=== PATIENT | female | born 1985 | race American Indian/Alaskan Native ===

== ENCOUNTER 2020-12-12 23:57 | Emergency (ER) | payer SELFPAY ==
[2020-12-13 00:41] VITALS: BP 128/86
[2020-12-13] MEDS ORDERED: ASPIRIN 81 MG TAB CHEW PO ONE (00:52)
--- NOTE | 2020-12-13 00:56 | Emergency Department Report ---
ED General Adult HPI - General Chief complaint: Chest Pain Stated complaint: CHEST PAIN Time Seen by Provider: 12/13/20 00:47 Source: patient Mode of arrival: Ambulatory Limitations: No Limitations - History of Present Illness Initial comments: 35-year-old female patient with history of asthma presents to the emergency department with complaints of chest pain starting yesterday. Patient describes the pain in her chest as dull, constant, localized to the midsternal area, exacerbated by deep inhalation and coughing, nonradiating. No history of simila r symptoms. Patient states chest pain is inconsistent with prior asthma exacerbations. Patient states her chest pain was preceded by multiple episodes of nonbloody emesis approximately 24 hours earlier. Patient states she has also been coughing for approximately 4 days. Patient does not use tobacco. No history of hypertension, diabetes, hyperlipidemia. No venous thromboembolism risk factors identified on history. Denies fever, chills, shortness of breath, wheezing, hemoptysis, nausea, vomiting, palpitations, syncope, lower extremity pain/swelling. Denies all other complaints at this time. - Related Data Allergies Allergy/AdvReac Type Severity Reaction Status Date / Time No Known Allergies Allergy Verified 12/13/20 00:33 ED Review of Systems ROS: Stated complaint: CHEST PAIN Other details as noted in HPI Other: GENERAL: Negative for fever, chills, weight change, anorexia, fatigue. ENT: Negative for ear pain, difficulty hearing, sore throat, nasal congestion, epistaxis. CARDIOVASCULAR: Positive for chest pain. PULMONARY: Positive for cough. GASTROINTESTINAL: Negative for abdominal pain. MUSCULOSKELETAL: Negative for joint pain, joint swelling, myalgias, back pain, neck pain. NEUROLOGICAL: Negative for headache, seizure, syncope, paresthesias, weakness. INTEGUMENTARY: Negative for erythema, rash, diaphoresis, laceration, ecchymosis. HEMATOLOGICAL: Negative for hemoptysis, hematemesis, hematochezia, hematuria. PSYCHIATRIC: Negative for hallucinations, suicidal ideation, homicidal ideation, anxiety, depression. ED Past Medical Hx - Past Medical History Previous Medical History?: No Hx Asthma: Yes Additional medical history: Bronchitis - Surgical History Past Surgical History?: No - Social History Smoking Status: Never Smoker Substance Use Type: None ED Physical Exam - General Limitations: No Limitations - Other Other exam information: General: Awake and alert. No acute distress. Head: Atraumatic, normocephalic. Eyes: EOMI. Pupils are equal and round. Normal sclera and conjunctiva. ENT: Oral mucosa is moist. Normal pharyngeal exam. Neck: Supple. No lymphadenopathy. Pulmonary: No respiratory distress. Clear to auscultation bilaterally. Pleuritic chest pain reproducible with deep inhalation. Cardiac: Regular rate and rhythm. Pulses are palpable and equal bilaterally. No lower extremity cyanosis or edema. Skin: Warm and dry. No rashes. Abdomen: Soft, non-tender, non-protuberant. No guarding, rigidity, or rebound. Bowel sounds are normal. No organomegaly or masses noted. Back: Normal alignment. No CVA tenderness. Extremities: Symmetrical. Full range of motion intact. Neurological: Alert and oriented, appropriately interactive, no focal deficits. Psych: Cooperative. Appropriate mood and affect. Speech is evenly metered. Thoughts are logically construed. ED Course Vital Signs 12/13/20 00:37 Temperature 98.2 F Pulse Rate 89 Respiratory 16 Rate Blood Pressure 128/86 O2 Sat by Pulse 100 Oximetry ED Medical Decision Making - Lab Data Result diagrams: 12/13/20 00:58 12/13/20 00:58 - EKG Data 12/13/20 00:56 EKG shows normal sinus rhythm with a ventricular rate of 80 bpm. Normal axis. Normal [place] interval. Normal QT interval. Good R wave progression. No ST segment changes. Over read by attending emergency physician, who agrees with this interpretation. - Medical Decision Making Differential diagnosis including but not limited to: acute coronary syndrome, cardiac arrhythmia, pericarditis, pericardial effusion/cardiac tamponade, myocarditis, pulmonary embolism, pleural effusion, pneumonia, Boerhaave syndrome Patient eloped from the emergency department prior to completion of diagnostic evaluation. Critical care attestation.: If time is entered above; I have spent that time in minutes in the direct care of this critically ill patient, excluding procedure time. ED Disposition Clinical Impression: Eloped from emergency department Disposition: 07 LEFT AWOL/ELOPED Is pt being admited?: No Condition: Undetermined Time of Disposition: 03:07
[2020-12-13 01:16] LABS: Basophils # (Auto) 0.1 K/mm3 (0.0-0.1); Basophils % (Auto) 0.6 % (0.0-1.8); Eosinophils # (Auto) 0.1 K/mm3 (0.0-0.4); Eosinophils % (Auto) 0.7 % (0.0-4.3); Hematocrit 36.4 % (30.3-42.9); Hemoglobin 12.1 gm/dl (10.1-14.3); Lymphocytes # (Auto) 2.5 K/mm3 (1.2-5.4); Lymphocytes % (Auto) 25.3 % (13.4-35.0); Mean Corpuscular HGB Conc 33 % (30-34); Mean Corpuscular Volume 87 fl (79-97); Monocytes # (Auto) 0.6 K/mm3 (0.0-0.8); Monocytes % (Auto) 6.4 % (0.0-7.3); Platelet Count 308 K/mm3 (140-440); Red Cell Distribution Width 13.8 % (13.2-15.2)
--- NOTE | 2020-12-13 01:18 | XRay Report ---
CHEST 2 VIEWS INDICATION / CLINICAL INFORMATION: chest pain;Chest pain, since yesterday in the AM around 0930.. COMPARISON: None available. FINDINGS: SUPPORT DEVICES: None. HEART / MEDIASTINUM: No significant abnormality. LUNGS / PLEURA: No significant pulmonary or pleural abnormality. No pneumothorax. ADDITIONAL FINDINGS: No significant additional findings. IMPRESSION: 1. No acute findings. Signer Name: Rico Aldridge MD Signed: 12/13/2020 1:14 AM Workstation Name: [id number]
[2020-12-13 01:40] LABS: Alanine Aminotransferase 13 units/L (7-56); Albumin 3.8 g/dL (3.9-5); BUN/Creatinine Ratio 11; Blood Urea Nitrogen 10 mg/dL (7-17); Calcium 9.4 mg/dL (8.4-10.2); Hemolysis Index 5
--- NOTE | 2020-12-15 10:52 | Electrocardiograph Report ---
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
== END 2020-12-13 03:05 | disposition left against medical advice (07) ==
LOC: ED 23:57
DX: R07.89 Other chest pain (principal); R05.9 Cough, unspecified; J45.909 Unspecified asthma, uncomplicated
CPT/HCPCS: 36415; 71046; 80053; 83735; 84484; 84703; 85025; 85379; 93005; 99283